=== PATIENT | female | born 1995 | race American Indian/Alaskan Native ===

== ENCOUNTER 2017-02-09 13:05 | Observation (INO) | payer SELFPAY ==
[2017-02-09] MEDS ORDERED: Albuterol-Ipratrop 3 mg / 0.5 (3 ml) UD ONE ×2 (13:14→13:33)
[2017-02-09 13:23] VITALS: BMI 32.5
[2017-02-09] MEDS ORDERED: Albuterol-Ipratrop 3 mg / 0.5 (3 ml) UD INH STA ×2 (14:16)
[2017-02-09 14:33] VITALS: RESP 20
[2017-02-09 14:41] LABS: BASO % 0.5 % (0.0-2.0); EOS # 1.2 K/uL (0.0-0.7); EOS % 13.5 % (0.0-4.0); HEMATOCRIT 40.4 % (34.0-47.0); LYMPH # 2.6 K/uL (1.0-4.3); LYMPH % 28.4 % (20.0-40.0); MEAN CELL VOLUME 80.8 fL (81.0-99.0); MEAN CORPUSCULAR HEMOGLOBIN 26.4 pg (27.0-31.0); MEAN CORPUSCULAR HGB CONC 32.7 g/dL (33.0-37.0); MEAN PLATELET VOLUME 7.1 fL (7.2-11.7); MONO # 0.7 K/uL (0.0-0.8); MONO % 7.8 % (0.0-10.0); RED CELL DISTRIBUTION WIDTH 14.7 % (11.5-14.5); WHITE BLOOD COUNT 9.2 K/uL (4.8-10.8)
[2017-02-09 14:47] LABS: ALKALINE PHOSPHATASE 93 U/L (38-126); ALT/SGPT 42 U/L (9-52); AST/SGOT 23 U/L (14-36); BILIRUBIN,TOTAL 0.6 mg/dL (0.2-1.3); BLOOD UREA NITROGEN 6 mg/dL (7-17); CARBON DIOXIDE 28 mmol/L (22-30); CHLORIDE 104 mmol/L (98-107); GFR AFRICAN-AMERICAN > 60; GLUCOSE,RANDOM 93 mg/dL (65-105); POTASSIUM 3.6 mmol/L (3.6-5.2); SODIUM 141 mmol/L (132-148); TOTAL PROTEIN 8.4 g/dL (6.3-8.3)
--- NOTE | 2017-02-09 15:17 | C.PDOC ---
History Of Present Illness 21 year old female, whose PMHx includes asthma with no intubations, max pf unknown, presents to the ED for evaluation of difficulty breathing and feeling like passing out which occurred while she was walking outside in the cold weather this morning. Patient reports she had cough with blood-streaked green sputum that is now yellow for the last few weeks and asthma bothering her for a few weeks. Patient was evaluated by her PMD last week and given 4-day dose of antibiotics and steroids (unknown dosage). Patient has been using treatments at home. Patient denies fever, chills, chest pain. Time Seen by Provider: 02/09/17 13:48 Chief Complaint (Nursing): Respiratory Distress History Per: Patient History/Exam Limitations: no limitations Current Symptoms Are (Timing): Still Present Associated Symptoms: Cough. denies: Fever Additional History Per: Patient PMH Reviewed: Historical Data, Nursing Documentation, Vital Signs - Medical History PMH: No Chronic Diseases - Surgical History Surgical History: No Surg Hx - Family History Family History: States: Unknown Family Hx - Immunization History Hx Tetanus Toxoid Vaccination: No Hx Influenza Vaccination: No Hx Pneumococcal Vaccination: No Review Of Systems Constitutional: Negative for: Fever, Chills Respiratory: Positive for: Cough, Sputum (yellow ) Pedatric Physical Exam - Physical Exam Appears: Non-toxic, No Acute Distress, Happy, Playful, Interacting Skin: Normal Color, Warm, Dry Head: Atraumatic, Normacephalic Eye(s): bilateral: Normal Inspection Ear(s): Bilateral: Normal Nose: Normal, No Discharge Oral Mucosa: Moist Throat: Normal, No Erythema, No Exudate Neck: Supple Chest: Symmetrical, No Deformity, No Tenderness Cardiovascular: Rhythm Regular, No Murmur, Other (tachycardic ) Respiratory: No Rales, Rhonchi (diffuse ), Wheezing (diffuse ) Extremity: Normal ROM, No Tenderness, Capillary Refill (less than 2 seconds ), No Swelling Neurological/Psych: Oriented x3, Normal Speech, Normal Cognition Gait: Steady ED Course And Treatment - Laboratory Results Result Diagrams: 02/09/17 14:30 02/09/17 14:30 O2 Sat by Pulse Oximetry: 97 (on RA) Pulse Ox Interpretation: Normal Medical Decision Making Medical Decision Making: Progress: Bloodwork, CXR ordered and reviewed. Abluterol INH X3 and solumedrol IVP administered. Patient with diffuse wheezing and rhonchi after treatments. 340 pm pt still with rhonchi and wheezing after iv steroids and 3 nebs, still feeling chest tightness. will place pt on reg obs for further treatment. discussed with hospitalist Dr Edgard Jiang. Disposition Discussed With Dr.: Simone Jiang Doctor Will See Patient In The: Hospital - Disposition Disposition: HOSPITALIZED Disposition Time: 15:42 Condition: STABLE Forms: [facility] (Macedonian) - Clinical Impression Clinical Impression: Exacerbation of asthma - PA / RECYCLING TECHNICIAN / Resident Statement MD/DO has reviewed & agrees with the documentation as recorded. - Scribe Statement The provider has reviewed the documentation as recorded by the Scribe (Pricilla Jiang) All medical record entries made by the Scribe were at my direction and personally dictated by me. I have reviewed the chart and agree that the record accurately reflects my personal performance of the history, physical exam, medical decision making, and the department course for this patient. I have also personally directed, reviewed, and agree with the discharge instructions and disposition.
--- NOTE | 2017-02-09 15:52 | RAD ---
HISTORY: COMPARISON: 06/22/2013. TECHNIQUE: Chest PA and lateral FINDINGS: LINES AND TUBES: None. LUNG AND PLEURA: The lungs are well inflated and clear. HEART AND MEDIASTINUM: The heart is not enlarged. The hilar and mediastinal contours are within normal limits. SKELETAL STRUCTURES: The bony structures are within normal limits for the patient's age. VISUALIZED UPPER ABDOMEN: Normal. OTHER FINDINGS: None. IMPRESSION: No active pulmonary disease.
--- NOTE | 2017-02-09 17:55 | CP.PCM.HP ---
<Suhajuan antoniospencerAbby KeyBindu - Last Filed: 02/09/17 17:45> History of Present Illness - History of Present Illness History of Present Illness: CC: SOB, chest pain HPI: Patient is a 21 yo female with PMH of asthma and bronchitis presented to the ED today after she woke up short of breath and chest pain. Patient said that about one week ago, she went to her PMD when she felt sick with a cough and runny nose. Patient describes the cough as productive with blood tinged and green/yellow sputum. She was prescribed steroids and antibiotics (for which she couldn't recall the names) and has taken them for 4 days. Since then, she developed sinus congestion with green/yellow mucus and no improvement in her cough. Patient states that she was diagnosed with asthma since the age of 10 and only uses a rescue inhaler and nebulizer for her asthma. She was hospitalized once for an exacerbation in 2014 but was never intubated. For the past 3 months , she has been getting sick requiring the use her inhaler often and goes to her PMD who prescribes a course of steroids and antibiotics. Patient related these asthma episodes to the change in weather and the heat at home. She admits to fever, chills, headache, SOB, chest pain from the cough, chest tightness. She denies any other changes to her environment, no pets at home or any sick contacts. Patient also admits to constipation since the of her 2 year old daughter, and can go without having a bowel movement for a week. 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 absent: Weakness - EENT Eyes: absent: Change in Vision Ears: Dizziness, Other (ear fullness) Nose/Mouth/Throat: Nasal Congestion, Sinus Pain, Sinus Pressure. absent: Dental Pain, Sore Throat, Throat Swelling, Neck Pain - Cardiovascular Cardiovascular: Chest Pain, Dyspnea. absent: Lightheadedness, Palpitations - Respiratory Respiratory: Cough, Hemoptysis, Wheezing, Chest Congestion, Excessive Mucous Production, Change in Mucous Color (yellow/green), Pain with Coughing - Gastrointestinal Gastrointestinal: Constipation. absent: Abdominal Pain, Diarrhea, Nausea, Vomiting - Genitourinary Genitourinary: absent: Dysuria - Reproductive: Female Reproductive:Female: Heavy Menses - Neurological Neurological: Dizziness, Headaches - Hematologic/Lymphatic Hematologic: absent: Lymphadenopathy Past Patient History - Past Social History Smoking Status: Former Smoker - PULMONARY Hx Asthma: Yes Hx Bronchitis: Yes - PSYCHIATRIC Hx Substance Use: No - SURGICAL HISTORY Hx Surgeries: No - ANESTHESIA Hx Anesthesia: No Meds Allergies/Adverse Reactions: Allergies Allergy/AdvReac Type Severity Reaction Status Date / Time No Known Allergies Allergy Verified 02/09/17 13:23 Physical Exam - Constitutional Appears: No Acute Distress - Head Exam Head Exam: ATRAUMATIC, NORMAL INSPECTION - Eye Exam Eye Exam: EOMI, Normal appearance - ENT Exam ENT Exam: Mucous Membranes Moist Additional comments: Enlarged tonsils - Neck Exam Neck exam: Positive for: Normal Inspection. Negative for: Lymphadenopathy - Respiratory Exam Respiratory Exam: Chest Wall Tenderness, Wheezes, NORMAL BREATHING PATTERN. absent: Clear to Auscultation Bilateral, Respiratory Distress - Cardiovascular Exam Cardiovascular Exam: REGULAR RHYTHM, +S1, +S2 - GI/Abdominal Exam GI & Abdominal Exam: Normal Bowel Sounds, Soft. absent: Distended, Tenderness - Extremities Exam Extremities exam: Positive for: normal inspection, pedal pulses present. Negative for: pedal edema, tenderness - Neurological Exam Neurological exam: Alert, Oriented x3 - Psychiatric Exam Psychiatric exam: Normal Affect, Normal Mood - Skin Skin Exam: Dry, Intact, Normal Color, Warm Results - Vital Signs Recent Vital Signs: Last Vital Signs Temp 98.3 F 02/09/17 16:57 Pulse 80 02/09/17 16:57 Resp 20 02/09/17 16:57 BP 125/55 L 02/09/17 16:57 Pulse Ox 100 02/09/17 16:57 - Labs Result Diagrams: 02/09/17 14:30 02/09/17 14:30 Labs: Laboratory Results - last 24 hr 02/09/17 02/09/17 14:30 14:30 WBC 9.2 RBC 5.00 Hgb 13.2 Hct 40.4 MCV 80.8 L MCH 26.4 L MCHC 32.7 L RDW 14.7 H Plt Count 355 MPV 7.1 L Neut % (Auto) 49.8 L Lymph % (Auto) 28.4 [place] % (Auto) 7.8 Eos % (Auto) 13.5 H Baso % (Auto) 0.5 Neut # 4.6 Lymph # 2.6 [place] # 0.7 Eos # 1.2 H Baso # 0.0 Sodium 141 Potassium 3.6 Chloride 104 Carbon Dioxide 28 Anion Gap 13 BUN 6 L Creatinine 0.6 L Est GFR ( Amer) > 60 Est GFR (Non-Af Amer) > 60 Random Glucose 93 Calcium 9.0 Total Bilirubin 0.6 AST 23 ALT 42 Alkaline Phosphatase 93 Total Protein 8.4 H Albumin 4.2 Globulin 4.2 H Albumin/Globulin Ratio 1.0 Assessment & Plan (1) Asthma exacerbation Assessment and Plan: Chest xray: no active disease Influenza A/B: f/u results TSH/Free T4: f/u results Urine : f/u results Medications: * Duonebs Q6 hours for 24 hours with peak flow * Solumedrol 60mg IV Q8hr * Loratidine 10mg PO daily * Singulaire 10mg PO daily Status: Acute (2) Sinusitis Assessment and Plan: Sinusitis/URI Medications: * Augmentin 500-125mg PO BID for 10 days (started on 02/09) * Florastor 250mg PO BID (not to be taken within 2 hours of administration of antibiotic) Status: Acute (3) Abnormal RBC indices Assessment and Plan: Secondary to iron deficieny? Secondary to heavy menses? Continue to Monitor Iron, TIBC, % saturation, Ferritin: f/u results Status: Acute (4) Prophylactic measure Assessment and Plan: SCDs Pepcid 20mg PO BID Regular Diet Status: Acute <Simone Jiang - Last Filed: 02/09/17 19:16> Results - Vital Signs Recent Vital Signs: Last Vital Signs Temp 98.3 F 02/09/17 16:57 Pulse 80 02/09/17 16:57 Resp 20 02/09/17 16:57 BP 125/55 L 02/09/17 16:57 Pulse Ox 100 02/09/17 16:57 - Labs Result Diagrams: 02/09/17 14:30 02/09/17 14:30 Labs: Laboratory Results - last 24 hr 02/09/17 02/09/17 14:30 14:30 WBC 9.2 RBC 5.00 Hgb 13.2 Hct 40.4 MCV 80.8 L MCH 26.4 L MCHC 32.7 L RDW 14.7 H Plt Count 355 MPV 7.1 L Neut % (Auto) 49.8 L Lymph % (Auto) 28.4 [place] % (Auto) 7.8 Eos % (Auto) 13.5 H Baso % (Auto) 0.5 Neut # 4.6 Lymph # 2.6 [place] # 0.7 Eos # 1.2 H Baso # 0.0 Sodium 141 Potassium 3.6 Chloride 104 Carbon Dioxide 28 Anion Gap 13 BUN 6 L Creatinine 0.6 L Est GFR ( Amer) > 60 Est GFR (Non-Af Amer) > 60 Random Glucose 93 Calcium 9.0 Total Bilirubin 0.6 AST 23 ALT 42 Alkaline Phosphatase 93 Total Protein 8.4 H Albumin 4.2 Globulin 4.2 H Albumin/Globulin Ratio 1.0 Attending/Attestation - Attestation I have personally seen and examined this patient.: Yes I have fully participated in the care of the patient.: Yes I have reviewed all pertinent clinical information: Yes Notes (Text): 02/09/17 19:15 Patient was seen in on the medical floor 356 A after she was brought up from the ER. Prior to doing so, the above H&P and Assessment and Plan were thoroughly gone over with the Resident. Simone Jiang D.o.
[2017-02-09] MEDS: Saccharomyces Boulardi 250 mg Cap PO SCH (19:53)
[2017-02-09] MEDS: Amoxicillin-Clav 500-125 mg Tab PO SCH (19:53)
[2017-02-09] MEDS ORDERED: Albuterol 0.083% Inhal Sol (2.5 mg/3 mL) UD INH SCH (20:00)
[2017-02-09 20:09] LABS: IRON 25 ug/dL (37-170)
[2017-02-09] MEDS: Albuterol-Ipratrop 3 mg / 0.5 (3 ml) UD INH SCH (20:27)
[2017-02-09] MEDS: Promethazine DM 6.25 mg-15 mg/5 ml Syrup PO PRN (21:38)
[2017-02-10] MEDS: Albuterol-Ipratrop 3 mg / 0.5 (3 ml) UD INH SCH ×3 (01:39→13:52)
[2017-02-10 07:06] LABS: BASO % 0.1 % (0.0-2.0); HEMATOCRIT 39.2 % (34.0-47.0); LYMPH # 1.2 K/uL (1.0-4.3); LYMPH % 12.7 % (20.0-40.0); MEAN CORPUSCULAR HEMOGLOBIN 26.3 pg (27.0-31.0); MEAN CORPUSCULAR HGB CONC 32.9 g/dL (33.0-37.0); MEAN PLATELET VOLUME 7.5 fL (7.2-11.7); MONO # 0.2 K/uL (0.0-0.8); MONO % 2.3 % (0.0-10.0); NRBC % 0.6 % (0.0-2.0); WHITE BLOOD COUNT 9.1 K/uL (4.8-10.8)
[2017-02-10 07:15] LABS: ALKALINE PHOSPHATASE 81 U/L (38-126); ALT/SGPT 41 U/L (9-52); AST/SGOT 18 U/L (14-36); BILIRUBIN,TOTAL 0.3 mg/dL (0.2-1.3); BLOOD UREA NITROGEN 8 mg/dL (7-17); CALCIUM 9.2 mg/dl (8.6-10.4); CARBON DIOXIDE 23 mmol/L (22-30); CHLORIDE 107 mmol/L (98-107); GFR AFRICAN-AMERICAN > 60; GLUCOSE,RANDOM 135 mg/dL (65-105); POTASSIUM 3.9 mmol/L (3.6-5.2); SODIUM 140 mmol/L (132-148)
[2017-02-10 07:44] LABS: THYROID STIMULATING HORMONE 0.07 mIU/L (0.46-4.68)
[2017-02-10 07:57] VITALS: BP 113/66; PULSE 82; TEMP 98.2; O2SAT 99
[2017-02-10] MEDS: Amoxicillin-Clav 500-125 mg Tab PO SCH (09:45)
[2017-02-10] MEDS: Saccharomyces Boulardi 250 mg Cap PO SCH (09:45)
[2017-02-10] MEDS: Promethazine DM 6.25 mg-15 mg/5 ml Syrup PO PRN (09:45)
[2017-02-10] MEDS ORDERED: Pneumococcal 23-Valent Vaccine IM ONE (13:00)
[2017-02-10] MEDS ORDERED: Influenza Vaccine 60 mcg/0.5 mL SYR (4YR UP) IM ONE (13:00)
--- NOTE | 2017-02-10 13:11 | CP.PCM.DIS ---
<Abby Cat - Last Filed: 02/10/17 13:07> Provider - Provider Date of Admission: 02/09/17 16:08 Attending physician: Simone Jiang MD Primary care physician: [facility] at [facility] Time Spent in preparation of Discharge (in minutes): 45 Diagnosis - Discharge Diagnosis (1) Asthma exacerbation Status: Acute (2) Sinusitis Status: Acute (3) Abnormal RBC indices Status: Acute Hospital Course - Lab Results Lab Results: Most Recent Lab Values WBC 9.1 K/uL (4.8-10.8) 02/10/17 06:51 RBC 4.90 Mil/uL (3.80-5.20) 02/10/17 06:51 Hgb 12.9 g/dL (11.0-16.0) 02/10/17 06:51 Hct 39.2 % (34.0-47.0) 02/10/17 06:51 MCV 80.0 fL (81.0-99.0) L 02/10/17 06:51 MCH 26.3 pg (27.0-31.0) L 02/10/17 06:51 MCHC 32.9 g/dL (33.0-37.0) L 02/10/17 06:51 RDW 15.0 % (11.5-14.5) H 02/10/17 06:51 Plt Count 401 K/uL (130-400) H 02/10/17 06:51 MPV 7.5 fL (7.2-11.7) 02/10/17 06:51 Neut % (Auto) 84.9 % (50.0-75.0) H 02/10/17 06:51 Lymph % (Auto) 12.7 % (20.0-40.0) L 02/10/17 06:51 [place] % (Auto) 2.3 % (0.0-10.0) 02/10/17 06:51 Eos % (Auto) 0.0 % (0.0-4.0) 02/10/17 06:51 Baso % (Auto) 0.1 % (0.0-2.0) 02/10/17 06:51 Neut # 7.7 K/uL (1.8-7.0) H 02/10/17 06:51 Lymph # 1.2 K/uL (1.0-4.3) 02/10/17 06:51 [place] # 0.2 K/uL (0.0-0.8) 02/10/17 06:51 Eos # 0.0 K/uL (0.0-0.7) 02/10/17 06:51 Baso # 0.0 K/uL (0.0-0.2) 02/10/17 06:51 Sodium 140 mmol/L (132-148) 02/10/17 06:51 Potassium 3.9 mmol/L (3.6-5.2) 02/10/17 06:51 Chloride 107 mmol/L (98-107) 02/10/17 06:51 Carbon Dioxide 23 mmol/L (22-30) 02/10/17 06:51 Anion Gap 15 (10-20) 02/10/17 06:51 BUN 8 mg/dL (7-17) 02/10/17 06:51 Creatinine 0.6 mg/dL (0.7-1.2) L 02/10/17 06:51 Est GFR ( Amer) > 60 02/10/17 06:51 Est GFR (Non-Af Amer) > 60 02/10/17 06:51 Random Glucose 135 mg/dL (65-105) H 02/10/17 06:51 Calcium 9.2 mg/dl (8.6-10.4) 02/10/17 06:51 Iron 25 ug/dL (37-170) L 02/09/17 19:54 TIBC 320 ug/dL (250-450) 02/09/17 19:54 % Saturation 10 (20-55) L 02/10/17 06:51 Ferritin 52.4 ng/mL 02/10/17 06:51 Total Bilirubin 0.3 mg/dL (0.2-1.3) 02/10/17 06:51 AST 18 U/L (14-36) 02/10/17 06:51 ALT 41 U/L (9-52) 02/10/17 06:51 Alkaline Phosphatase 81 U/L (38-126) 02/10/17 06:51 Total Protein 8.0 g/dL (6.3-8.3) 02/10/17 06:51 Albumin 4.1 g/dL (3.5-5.0) 02/10/17 06:51 Globulin 4.0 gm/dL (2.2-3.9) H 02/10/17 06:51 Albumin/Globulin Ratio 1.0 (1.0-2.1) 02/10/17 06:51 Free T4 1.00 ng/dL (0.78-2.19) 02/10/17 06:51 TSH 3rd Generation 0.07 mIU/L (0.46-4.68) L 02/10/17 06:51 Influenza Typ A,B (EIA) Negative for flu a/b (NEGATIVE) 02/09/17 08:00 - Hospital Course Hospital Course: CC: SOB, chest pain HPI: Patient is a 21 yo female with PMH of asthma and bronchitis presented to the ED today after she woke up short of breath and chest pain. Patient said that about one week ago, she went to her PMD when she felt sick with a cough and runny nose. Patient describes the cough as productive with blood tinged and green/yellow sputum. She was prescribed steroids and antibiotics (for which she couldn't recall the names) and has taken them for 4 days. Since then, she developed sinus congestion with green/yellow mucus and no improvement in her cough. Patient states that she was diagnosed with asthma since the age of 10 and only uses a rescue inhaler and nebulizer for her asthma. She was hospitalized once for an exacerbation in 2014 but was never intubated. For the past 3 months , she has been getting sick requiring the use her inhaler often and goes to her PMD who prescribes a course of steroids and antibiotics. Patient related these asthma episodes to the change in weather and the heat at home. She admits to fever, chills, headache, SOB, chest pain from the cough, chest tightness. She denies any other changes to her environment, no pets at home or any sick contacts. Patient also admits to constipation since the of her 2 year old daughter, and can go without having a bowel movement for a week. 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 Patient's initial blood work didn' t reveal any signs of acute infection. Chest xray revealed no acute disease. Influenza A/B was negative. She also presented with nasal congestion likely secondary to sinusitis for which she was started on Augmentin and a probiotic. Patient's blood revealed possible iron deficiency likely secondary to heavy menses with a stable hemoglobin at this time. She was medically stabilized for discharge and instructed to follow up with her PMD within one week. This is a brief summary of the hospital course. If more information is needed, please refer to the EMR. Discharge Exam - Head Exam Head Exam: ATRAUMATIC, NORMAL INSPECTION - Eye Exam Eye Exam: EOMI, Normal appearance - ENT Exam ENT Exam: Mucous Membranes Moist - Neck Exam Neck exam: Full Rom, Normal Inspection - Respiratory Exam Respiratory Exam: Wheezes, NORMAL BREATHING PATTERN. absent: Clear to PA & Lateral, Rales, Rhonchi - Cardiovascular Exam Cardiovascular Exam: REGULAR RHYTHM, +S1, +S2 - GI/Abdominal Exam GI & Abdominal Exam: Normal Bowel Sounds, Soft, Unremarkable. absent: Distended , Firm, Tenderness - Extremities Exam Extremities exam: normal inspection - Neurological Exam Neurological exam: Alert, Oriented x3 - Psychiatric Exam Psychiatric exam: Normal Affect, Normal Mood - Skin Skin Exam: Dry, Intact, Normal Color, Warm Discharge Plan - Discharge Medications Prescriptions: Albuterol HFA [Ventolin HFA 90 mcg/actuation (8 g)] 1 puff INH PRN PRN #1 inhaler PRN Reason: Wheezing Amoxicillin/Clavulanate [Augmentin 500 MG-125 MG Tab] 1 tab PO BID 9 Days #18 tab Famotidine [Pepcid] 20 mg PO BID 30 Days #60 tab Ferrous Sulfate [Feosol] 325 mg PO BID #60 tab Fluticasone/Salmeterol 500/50 [Advair Diskus] 1 dsk IH Q12H #1 inhaler Loratadine [Claritin] 10 mg PO DAILY #30 tab Montelukast [Singulair] 10 mg PO HS #30 tab - Follow Up Plan Condition: STABLE Disposition: HOME/ ROUTINE Instructions: Famotidine (By mouth), Albuterol (By breathing), Loratadine (By mouth), Amoxicillin/Clavulanate Potassium (By mouth), Montelukast (By mouth), Fluticasone/Salmeterol (By breathing), Asthma (DC) Additional Instructions: Patient is stable for discharge to home. Patient must take medication listed below as prescribed: - Augmentin 500-125mg PO BID- take 1 tablet by mouth twice a day (7am and 7pm) for 9 days. - Take an [id number]-[id number] probiotic for 39 days. - Prednisone 10mg PO for 5 days (follow directions listed below) - take 5 tablets on 02/10/17 - take 4 tablets on 02/11/17 - take 3 tablets on 02/12/17 - take 2 tablets on 02/13/17 - take 1 tablets on 02/14/17 - Advair 500/50, 1 puff inhaler Q12hr starting on 02/15/17- take 1 puff twice a day (7am and 7pm) - Singulaire 10mg PO HS- take 1 tablet by mouth every night (7pm) - Pepcid 20mg PO BID- take 1 tablet by mouth twice a day (7am and 7pm) - Claritin (Loratidine) 10mg PO daily- take 1 tablet by mouth daily (7am) - Albuterol 90mcg 1 puff inhaler Q6prn- take 1 puff every 6 hours as needed for shortness of breath and/or wheezing Patient must call [facility] at [facility] at [phone] to make a follow up appointment within 1 week of discharge. They will be patient 's primary care providers. If symptoms worsen or reoccur, patient should return to the ED. Referrals: [facility] at [facility] [Outside] <Simone Jiang - Last Filed: 02/10/17 19:49> Provider - Provider Date of Admission: 02/09/17 16:08 Attending physician: Simone Jiang MD Hospital Course - Lab Results Lab Results: Most Recent Lab Values WBC 9.1 K/uL (4.8-10.8) 02/10/17 06:51 RBC 4.90 Mil/uL (3.80-5.20) 02/10/17 06:51 Hgb 12.9 g/dL (11.0-16.0) 02/10/17 06:51 Hct 39.2 % (34.0-47.0) 02/10/17 06:51 MCV 80.0 fL (81.0-99.0) L 02/10/17 06:51 MCH 26.3 pg (27.0-31.0) L 02/10/17 06:51 MCHC 32.9 g/dL (33.0-37.0) L 02/10/17 06:51 RDW 15.0 % (11.5-14.5) H 02/10/17 06:51 Plt Count 401 K/uL (130-400) H 02/10/17 06:51 MPV 7.5 fL (7.2-11.7) 02/10/17 06:51 Neut % (Auto) 84.9 % (50.0-75.0) H 02/10/17 06:51 Lymph % (Auto) 12.7 % (20.0-40.0) L 02/10/17 06:51 [place] % (Auto) 2.3 % (0.0-10.0) 02/10/17 06:51 Eos % (Auto) 0.0 % (0.0-4.0) 02/10/17 06:51 Baso % (Auto) 0.1 % (0.0-2.0) 02/10/17 06:51 Neut # 7.7 K/uL (1.8-7.0) H 02/10/17 06:51 Lymph # 1.2 K/uL (1.0-4.3) 02/10/17 06:51 [place] # 0.2 K/uL (0.0-0.8) 02/10/17 06:51 Eos # 0.0 K/uL (0.0-0.7) 02/10/17 06:51 Baso # 0.0 K/uL (0.0-0.2) 02/10/17 06:51 Sodium 140 mmol/L (132-148) 02/10/17 06:51 Potassium 3.9 mmol/L (3.6-5.2) 02/10/17 06:51 Chloride 107 mmol/L (98-107) 02/10/17 06:51 Carbon Dioxide 23 mmol/L (22-30) 02/10/17 06:51 Anion Gap 15 (10-20) 02/10/17 06:51 BUN 8 mg/dL (7-17) 02/10/17 06:51 Creatinine 0.6 mg/dL (0.7-1.2) L 02/10/17 06:51 Est GFR ( Amer) > 60 02/10/17 06:51 Est GFR (Non-Af Amer) > 60 02/10/17 06:51 Random Glucose 135 mg/dL (65-105) H 02/10/17 06:51 Calcium 9.2 mg/dl (8.6-10.4) 02/10/17 06:51 Iron 25 ug/dL (37-170) L 02/09/17 19:54 TIBC 320 ug/dL (250-450) 02/09/17 19:54 % Saturation 10 (20-55) L 02/10/17 06:51 Ferritin 52.4 ng/mL 02/10/17 06:51 Total Bilirubin 0.3 mg/dL (0.2-1.3) 02/10/17 06:51 AST 18 U/L (14-36) 02/10/17 06:51 ALT 41 U/L (9-52) 02/10/17 06:51 Alkaline Phosphatase 81 U/L (38-126) 02/10/17 06:51 Total Protein 8.0 g/dL (6.3-8.3) 02/10/17 06:51 Albumin 4.1 g/dL (3.5-5.0) 02/10/17 06:51 Globulin 4.0 gm/dL (2.2-3.9) H 02/10/17 06:51 Albumin/Globulin Ratio 1.0 (1.0-2.1) 02/10/17 06:51 Free T4 1.00 ng/dL (0.78-2.19) 02/10/17 06:51 TSH 3rd Generation 0.07 mIU/L (0.46-4.68) L 02/10/17 06:51 Influenza Typ A,B (EIA) Negative for flu a/b (NEGATIVE) 02/09/17 08:00 Attending/Attestation - Attestation I have personally seen and examined this patient.: Yes I have fully participated in the care of the patient.: Yes I have reviewed all pertinent clinical information, including history, physical exam and plan: Yes Notes (Text): 02/10/17 19:46 Patient was seen and examined at 11:45 AM 02/10/17 353 A Exam, assessment and plan, and discharge instructions and medications were thoroughly gone over with the resident Simone Jiang D.O.
[2017-02-12] MEDS ORDERED: Pneumococcal 23-Valent Vaccine IM ONE (10:00)
== END 2017-02-10 14:55 | disposition home or self-care (01) ==
LOC: C.ER 13:05 → C.9E 16:08 → C.3T 16:51
PROVIDERS: ADMIT Family Medicine; ATTEND Family Medicine
DX: J45.901 Unspecified asthma with (acute) exacerbation (principal); K59.00 Constipation, unspecified; Z87.891 Personal history of nicotine dependence
CPT/HCPCS: 36415; 71020; 80053; 82728; 83540; 83550; 84439; 84443; 85025; 87804; 90674; 90732; 94150; 94640; 96374; 99285; G0008; G0009; G0378; J2930